=== PATIENT | female | born 1975 | race Caucasian/White ===

== ENCOUNTER 2019-07-15 16:17 | Outpatient (CLI) | payer BC ==
--- NOTE | 2019-07-15 16:53 | RAD ---
Exam: 3 views thoracic spine HISTORY: Coccydynia. FINDINGS: Symmetric sacral iliac joints. Visualized bony pelvis is intact. Sacral ala are preserved. IMPRESSION: Unremarkable 3 views sacrum.
== END 2019-07-15 16:18 | disposition home or self-care (01) ==
LOC: BICRAD 16:17
PROVIDERS: ATTEND Family Medicine
DX: M53.3 Sacrococcygeal disorders, not elsewhere classified (principal)
CPT/HCPCS: 36415; 72220; 80053; 80061; 81001; 83036; 84443; 85025